=== PATIENT | female | born 1950 | race Caucasian/White ===

== ENCOUNTER 2023-02-12 14:58 | Inpatient (IN) | payer MEDICARE, BC ==
[2023-02-12] MEDS ORDERED: HEPARIN SODIUM 1,000 UN/ML (10ML VL) IV PRN (18:27)
[2023-02-12] MEDS ORDERED: ALBUTEROL NEBULIZED 2.5 MG/3 ML INHALATION PRN (18:44)
[2023-02-12] MEDS ORDERED: ACETAMINOPHEN TAB 325 MG TAB PO PRN (18:44)
[2023-02-12] MEDS ORDERED: ONDANSETRON 4 MG/2 ML VIAL IVP PRN (18:45)
[2023-02-12 19:07] LABS: Basophils % (A) 0 %; Eosinophils # (A) 0.1 k/uL (0-0.7); Eosinophils % (A) 1 %; Lymphocytes # (A) 1.7 k/uL (1.0-4.8); Lymphocytes % (A) 32 %; MCH 32.6 pg (25.0-35.0); MCHC 32.6 g/dL (31.0-37.0); MCV 99.9 fL (80.0-100.0); Mean Platelet Volume 7.6; Monocytes # (A) 0.3 k/uL (0-1.0); Monocytes % (A) 5 %; Neutrophils # (A) 3.1 k/uL (1.3-7.7); Neutrophils % (A) 58 %; Platelet Count 183 k/uL (150-450); RDW 12.6 % (11.5-15.5); WBC 5.3 k/uL (3.8-10.6)
[2023-02-12 19:12] LABS: Partial Thromboplastin Time 24.3 sec (22.0-30.0); Prothrombin Time 10.6 sec (9.0-12.0)
[2023-02-12] MEDS: HEPARIN SOD,PORK IN 0.45% NACL 25,000 UNIT in 0.45% NACL 1 250ML.BAG IV SCH (20:57)
[2023-02-12] MEDS ORDERED: ATORVASTATIN 40 MG TAB PO SCH (21:00)
[2023-02-12] MEDS: METOPROLOL TARTRATE 50 MG TAB PO SCH (21:06)
[2023-02-13 01:29] LABS: Prothrombin Time 10.5 sec (9.0-12.0)
[2023-02-13 07:39] LABS: Basophils % (A) 0 %; Eosinophils # (A) 0.1 k/uL (0-0.7); Eosinophils % (A) 2 %; HCT 42.5 % (34.0-46.0); HGB 14.2 gm/dL (11.4-16.0); Lymphocytes # (A) 1.2 k/uL (1.0-4.8); Lymphocytes % (A) 28 %; MCH 32.5 pg (25.0-35.0); MCHC 33.3 g/dL (31.0-37.0); MCV 97.5 fL (80.0-100.0); Monocytes # (A) 0.3 k/uL (0-1.0); Monocytes % (A) 6 %; Neutrophils # (A) 2.6 k/uL (1.3-7.7); Neutrophils % (A) 60 %; Platelet Count 171 k/uL (150-450); RBC 4.36 m/uL (3.80-5.40); RDW 12.9 % (11.5-15.5); WBC 4.4 k/uL (3.8-10.6)
[2023-02-13] MEDS ORDERED: SODIUM CHLORIDE 0.9% 1,000 ML IV ONE (09:00)
[2023-02-13] MEDS ORDERED: ASPIRIN 325 MG TAB ONE (09:06)
[2023-02-13] MEDS ORDERED: ASPIRIN 325 MG TAB PO ONE (09:07)
[2023-02-13] MEDS ORDERED: VERAPAMIL 2.5 MG/ML 2 ML AMP ONE (09:08)
[2023-02-13] MEDS ORDERED: fentaNYL (PF) 50 MCG/ML 2 ML AMP ONE (09:13)
[2023-02-13] MEDS ORDERED: fentaNYL (PF) 50 MCG/ML 2 ML AMP IV ONE (09:16)
[2023-02-13] MEDS ORDERED: LIDOCAINE 1% INJ 10MG/ML (5 ML VIAL-PF) SQ ONE (09:19)
[2023-02-13] MEDS ORDERED: MIDAZOLAM 2 MG/2 ML VIAL IV ONE (09:19)
[2023-02-13] MEDS ORDERED: VERAPAMIL SYRINGE (5 MG/10 ML) INTRAARTER ONE (09:21)
[2023-02-13] MEDS ORDERED: IOPAMIDOL-370 100ML BTL INJ ONE (09:51)
[2023-02-13] MEDS ORDERED: ATROPINE SULFATE 0.1 MG/ML 10ML SYRINGE IV PRN (09:57)
[2023-02-13] MEDS ORDERED: NITROGLYCERIN SL TABS 0.4 MG TAB SUBLINGUAL PRN (09:57)
[2023-02-13] MEDS ORDERED: ZOLPIDEM 5 MG TAB PO PRN (09:57)
[2023-02-13] MEDS ORDERED: RX INFO: IV CONTRAST WAS GIVEN 1 EACH MISC MISCELLANE PRN (09:57)
[2023-02-13] MEDS ORDERED: MAG HYDROX/AL HYDROX/SIMETH 30 ML CUP PO PRN (09:57)
[2023-02-13] MEDS ORDERED: SODIUM CHLORIDE 0.9% 1,000 ML in EMPTY BAG 1 BAG IV SCH (10:00)
--- NOTE | 2023-02-13 10:04 | P.PCN ---
Date of Procedure: 02/13/23 Operative Findings: CARDIAC CATHETERIZATION PERFORMING PHYSICIAN: Brenton Johnson MD, RPVI PROCEDURE PERFORMED: 1. Selective right and left coronary angiogram 2. Left heart catheterization 3. iFR of the RCA and iFR of the LAD INDICATION: Acute non-ST elevation myocardial infarction COMPLICATION: None APPROACH: Right radial approach LEVEL OF SEDATION: Moderate with the sedation time off 31 minutes PROCEDURE DESCRIPTION: After obtaining an informed consent the patient was brought to the cardiac computer lab assistant. The right radial artery was cannulated using micropuncture technique, the micropuncture wire passed easily then I placed a 6-Tajik sheath at the right radial artery. After that I did selective right and left coronary angiogram using JR4 and JL 3.5 catheters. Please note that the patient was given 2 mg of verapamil intra-arterial before the procedure was started. Subsequently I did left heart catheterization and that was performed using the JR4 catheter which cross the aortic valve then I did pulled back across the valve. After that we did Doppler wire of both the RCA and LAD. The procedure was completed was no complication SELECTIVE CORONARY ANGIOGRAM: The right coronary artery: Large caliber vessel and a dominant vessel. The mid RCA has a tubular lesion up to about 60-70% in the midportion. We did iFR and that came in to be nonischemic an 0.95. Left main: Is angiographically normal. Bifurcates into an LCx and LAD The left circumflex: Large caliber vessel and nondominant vessel. The LCx has mild disease only. Gives rises into a large OM1 and OM 2 and both appeared to be angiographically normal The left anterior descending artery: Large caliber vessel. The proximal LAD appears to have mild disease only. The proximal to mid LAD has a focal lesion appears to be in the range of 50-60%. Also we did perform iFR and that came in to be nonischemic an 0.91. The distal LAD appears to be angiographically normal. HEMODYNAMICS: The LVEDP was 12 mmHg was no significant gradient across aortic valve iFR OF THE RCA and LAD: Anticoagulation was initiated using heparin with continuous ACT monitoring. After zeroing the Doppler wire and equalizing between the Doppler wire and the guiding catheter which was JR4 guiding catheter and after wiring the RCA we did perform Doppler measurement and that was iFR and that came in to be an 0.95. That was performed multiple times. Subsequently after zeroing the Doppler wire again and equalizing between the Doppler wire and the guiding catheter for the left coronary system which was JL 3.5 guiding catheter and after wiring the LAD we did also iFR of the LAD and that came in to be nonischemic an 0.91. The procedure was completed was no complication CONCLUSION: 1. Extremely calcified right and left coronary systems 2. Intermediate to severe disease involving the mid RCA. iFR was nonischemic an 0.95 3. Intermediate to severe disease involving the mid LAD. iFR was nonischemic an 0.91 POSTPROCEDURE MANAGEMENT: 1. Continue maximize medical treatment including aggressive cholesterol control and risk factors modification
[2023-02-13] MEDS: METOPROLOL TARTRATE 50 MG TAB PO SCH (11:03)
--- NOTE | 2023-02-13 11:23 | P.PN ---
Subjective Progress Note Date: 02/13/23 The patient is a 72-year-old female who presented to the hospital with palpitations and chest tightness. She was ruled in for non-Q-wave myocardial infarction and was therefore transferred to [facility]. She underwent coronary angiogram this morning with Dr. Neville. She was found to have to intermediate lesions, one in the RCA and one in the LAD. FFR measurement deemed nonischemic. The patient was interviewed and examined resting in bed. She denies any chest pain or chest pressure. No more palpitations. No dizziness or lightheadedness. GENERAL: Well-appearing, well-nourished and in no acute distress. NECK: Supple without JVD or thyromegaly. LUNGS: Breath sounds clear to auscultation bilaterally. Respiration equal and unlabored. No wheezes, rales or rhonchi. HEART: Regular rate and rhythm without murmurs, rubs or gallops. S1 and S2 heard. EXTREMITIES: Normal range of motion, no edema. No clubbing or cyanosis. Peripheral pulses intact and strong. Right TR band in place VITALS: Blood pressure 151/77, pulse 78, respiratory rate 18, SpO2 95% on room air, afebrile TELEMETRY: Sinus rhythm IMPRESSION: Non-Q-wave myocardial infarction Moderate disease of RCA and LAD Atrial fibrillation with RVR, paroxysmal PLAN: Start anticoagulation Switch to Toprol-XL for rate control Start lisinopril for hypertension Echocardiogram to be completed outpatient Further recommendations to be based on clinical course I am dictating on behalf of Dr Claus Jalloh's history/physical and assessment/p asael. Objective - Vital Signs Vital signs: Vital Signs Temp 97.2 F L 02/13/23 07:59 Pulse 78 02/13/23 07:59 Resp 18 02/13/23 07:59 BP 151/77 02/13/23 07:59 Pulse Ox 95 02/13/23 07:59 FiO2 Intake & Output 02/12/23 02/13/23 02/13/23 18:59 06:59 18:59 Intake Total 598.924 100 Balance 598.924 100 Weight 68.039 kg Intake: IV 100 Intake, IV Titration 58.924 Amount Heparin Sod,Pork in 0.45% 58.924 NaCl 25,000 unit In 0.45 % NaCl 1 250ml.bag @ 12 UNITS/KG/HR 8.165 mls/hr IV .Q24H NARCISA Rx#: [id number] Oral 540 0 Other: # Voids 2 - Labs CBC & Chem 7: 02/13/23 06:59 Labs: Abnormal Lab Results - Last 24 Hours (Table) 02/13/23 02/13/23 Range/Units 01:02 06:59 APTT 42.0 H 59.0 H (22.0-30.0) sec
[2023-02-13 12:15] VITALS: BMI 23.5
[2023-02-13] MEDS: LEVOTHYROXINE 75 MCG TAB PO SCH (12:34)
[2023-02-13] MEDS: CLOPIDOGREL 75 MG TAB PO SCH (12:34)
[2023-02-13] MEDS: FENOFIBRATE 54 MG TAB PO SCH (12:34)
[2023-02-13] MEDS: METOPROLOL SUCCINATE (ER) 100 MG TAB.ER.24H PO SCH (12:35)
[2023-02-13 12:41] LABS: African American GFR (CKD) >90 (>60 ml/min/1.73 sqM); Anion Gap 6 mmol/L; Blood Urea Nitrogen 16 mg/dL (7-17); Carbon Dioxide 28 mmol/L (22-30); Chloride 104 mmol/L (98-107); Glucose 95 mg/dL (74-99); Non-African American GFR(CKD) 88 (>60 ml/min/1.73 sqM); Potassium 4.7 mmol/L (3.5-5.1); Sodium 138 mmol/L (137-145)
[2023-02-13] MEDS: HEPARIN SOD,PORK IN 0.45% NACL 25,000 UNIT in 0.45% NACL 1 250ML.BAG IV SCH (19:42)
[2023-02-13] MEDS: lisinopriL 10 MG TAB PO SCH (20:54)
[2023-02-13] MEDS: APIXABAN 5 MG TAB PO SCH (20:54)
[2023-02-13] MEDS: ATORVASTATIN 80 MG TAB PO SCH (20:54)
--- NOTE | 2023-02-14 01:51 | P.HPIM ---
History of Present Illness H&P Date: 02/13/23 Chief Complaint: Chest tightness Patient is a 72-year-old female with a known history of hypertension, hyperlipidemia, COPD, osteoarthritis and hypothyroidism and currently everyday smoker initially presented to [facility] due to complaints of palpitations, dizziness and chest tightness. Patient found to have atrial fibrillation with rapid evaluate and elevated troponin level. Patient did have EKG changes with ST depressions in the precordial leads. Due to elevated troponin level and EKG this patient was transferred to [facility] for cardiac catheterization. Patient underwent cardiac catheterization which showed extremely calcified right and left coronary systems. Intermediate to severe disease involving mid RCA and mid LAD maximal medical therapy was recommended by cardiology. Laboratory data showed WBC 4.4 hemoglobin 14.1 platelets 171 Sodium 138 potassium 4.7 chloride 104 bicarb is 28 BUN 16 creatinine 0.65 blood sugar is 95. Review of Systems Constitutional: Patient denies any fever or chills . no Generalized weakness. Abdomen: Patient denied any nausea or vomiting or abd. pain Cardiovascular: Patient denies any chest pain or short of breath no palpitations. Respiratory: patient denied any cough . no sputum production. No shortness of breath Neurologic: Patient denied any numbness or tingling headache. Musculoskeletal: Patient denies any complaints of joint swelling or deformity. Skin: Negative Psychiatric: Negative Endocrine: No heat or cold intolerance. No recent weight gain. Genitourinary: No dysuria or hematuria. All other 14 point ROS negative except the above Past Medical History Past Medical History: Atrial Fibrillation, COPD, Hyperlipidemia, Hypertension, Osteoarthritis (OA), Thyroid Disorder Additional Past Medical History / Comment(s): new a-fib at [facility] prior to transfer, carotid stenosis? Sees Cuppari History of Any Multi-Drug Resistant Organisms: None Reported Past Surgical History: Appendectomy, Orthopedic Surgery, Tonsillectomy Additional Past Surgical History / Comment(s): Left elbow surgery, L hand Past Psychological History: No Psychological Hx Reported Smoking Status: Current some day smoker Past Alcohol Use History: None Reported Past Drug Use History: None Reported - Past Family History Mother Family Medical History: Congestive Heart Failure (CHF) Brother(s) Family Medical History: Coronary Artery Disease (CAD) Sister(s) Family Medical History: AFIB Medications and Allergies Home Medications Medication Instructions Recorded Confirmed Type Cholecalciferol [Vitamin D3] 1,000 unit PO DAILY 12/23/14 02/12/23 History Albuterol Sulfate [Albuterol 2 puff INHALATION RT-QID PRN 02/12/23 02/12/23 History Sulfate Hfa] Ascorbic Acid [Vitamin C] 500 mg PO DAILY 02/12/23 02/12/23 History Aspirin EC [Ecotrin Low Dose] 81 mg PO DAILY 02/12/23 02/12/23 History Atorvastatin [Lipitor] 80 mg PO DAILY 02/12/23 02/13/23 History Clopidogrel [Plavix] 75 mg PO DAILY 02/12/23 02/12/23 History Fenofibrate [Lofibra] 54 mg PO DAILY 02/12/23 02/12/23 History Levothyroxine Sodium [Synthroid] 125 mcg PO DAILY 02/12/23 02/12/23 History RX: Biotin 5 mg PO DAILY 02/12/23 02/12/23 History RX: Vitamin B Complex 1 cap PO DAILY 02/12/23 02/12/23 History Zinc Gluconate [Zinc] 50 mg PO DAILY 02/12/23 02/12/23 History Metoprolol Succinate (ER) [Toprol 100 mg PO DAILY 02/13/23 02/13/23 History Xl] Allergies Allergy/AdvReac Type Severity Reaction Status Date / Time alendronate sodium Allergy Rash/Hives Verified 02/12/23 18:50 [From Fosamax] guzman Allergy Rash/Hives Verified 02/12/23 18:50 Penicillins Allergy Rash/Hives/ Verified 02/12/23 18:50 Nausea codeine AdvReac Nausea & Verified 02/12/23 18:50 Vomiting Physical Exam Vitals: Vital Signs Temp Pulse Resp BP Pulse Ox 02/13/23 07:59 97.2 F L 78 18 151/77 95 02/13/23 04:00 97.5 F L 62 18 156/77 92 L 02/13/23 02:00 61 18 02/13/23 00:00 98.0 F 61 18 130/72 93 L 02/12/23 20:00 97.9 F 72 18 137/64 93 L 02/12/23 18:17 70 18 177/76 95 Intake and Output 02/12/23 02/13/23 02/13/23 22:59 06:59 14:59 Intake Total 540 58.924 100 Balance 540 58.924 100 Intake: IV 100 Intake, IV Titration 58.924 Amount Heparin Sod,Pork in 0.45% 58.924 NaCl 25,000 unit In 0.45 % NaCl 1 250ml.bag @ 12 UNITS/KG/HR 8.165 mls/hr IV .Q24H NARCISA Rx#: [id number] Oral 540 Other: # Voids 2 Weight 68.039 kg PHYSICAL EXAMINATION: Patient is lying in the bed comfortably, no acute distress, awake alert and oriented.. HEENT: Normocephalic. Neck is supple. Pupils reactive. Nostrils clear. Oral cavity is moist. Neck reveals no JVD, carotid bruits, or thyromegaly. CHEST EXAMINATION: Trachea is central. Symmetrical expansion. Lung freitas clear to auscultation and percussion. CARDIAC: Normal S1, S2 with no gallops. No murmurs ABDOMEN: Soft. Bowel sounds present. Nontender. No organomegaly. No abdominal bruits. Extremities: reveal no edema. No clubbing or cyanosis Neurologically awake, alert, oriented x3 with well-coordinated movements. No focal deficits noted Skin: No rash or skin lesions. Psychiatric: Coperative. Nonsuicidal, Musculoskeletal: No joint swelling or deformity. Normal range of motion. Results CBC & Chem 7: 02/13/23 06:59 02/13/23 10:41 Labs: Abnormal Lab Results - Last 24 Hours (Table) 02/13/23 02/13/23 Range/Units 01:02 06:59 APTT 42.0 H 59.0 H (22.0-30.0) sec Thrombosis Risk Factor Assmnt - DVT/VTE Prophylaxis DVT/VTE Prophylaxis: Pharmacologic Prophylaxis ordered - Choose All That Apply Each Risk Factor Represents 2 Points: Age 61-74 years Thrombosis Risk Factor Assessment Total Risk Factor Score: 2 Thrombosis Risk Factor Assessment Level: Low Risk Assessment and Plan Assessment: New onset atrial fibrillation with rapid ventricular rate. Paroxysmal atrial fibrillation Acute non-ST elevated NH status postcardiac catheterization showed moderate disease in the mid RCA and mid LAD. Hypothyroidism Hypertension Hyperlipidemia COPD Osteoarthritis Currently someday smoker DVT prophylaxis patient is already on full anticoagulation Plan: Patient will be continued on telemetry monitoring. Initially was on Cardizem drip and heparin drip. Currently patient was started on Toprol-XL and lisinopril. Anticoagulation changed to Eliquis. Continue with DuoNebs and follow-up c martínez. Anticipate discharge in the next 24 hours. Patient did improve symptomatically. Time with Patient: Greater than 30
[2023-02-14] MEDS: LEVOTHYROXINE 75 MCG TAB PO SCH (05:57)
[2023-02-14] MEDS: APIXABAN 5 MG TAB PO SCH ×2 (08:23→21:08)
[2023-02-14] MEDS: METOPROLOL SUCCINATE (ER) 100 MG TAB.ER.24H PO SCH (08:23)
[2023-02-14] MEDS: ASPIRIN 81 MG PO SCH (08:23)
[2023-02-14] MEDS: CLOPIDOGREL 75 MG TAB PO SCH (08:24)
[2023-02-14] MEDS: FENOFIBRATE 54 MG TAB PO SCH (08:24)
--- NOTE | 2023-02-14 10:59 | P.CRDCN ---
History of Present Illness History of present illness: Mrs. Silva was transferred from [facility] with a non-Q wave myocardial infarction and significant ST depressions during atrial fibrillation as well as after she spontaneously converted to sinus rhythm She has not obstructive coronary artery disease with very borderline lesions at this time LVEDP 12 Mid RCA has a 60-70% stenosis with a nonischemic IFR of 0.95 The proximal mid LAD has stenosis of 50-60% with an IFR of 0.91 Extremely calcified coronary arteries She is doing well now in sinus rhythm ST segments have nearly normalized She is a very subtle downsloping ST depression in V4 through V6 Electrolytes and normal renal function is normal hemoglobin 14.2 Impression Very symptomatic atrial fibrillation with RVR with ST depressions and2 PR secondary to demand ischemia on account of PFO with RVR despite medical treatment with metoprolol CAD with 2 vessel disease with a nonischemic IFR but borderline lesions in the RCA and LAD Heavily calcified coronary arteries Suggest Continue ELIQUIS 5 mg twice daily Continue Plavix 75 g by mouth daily After one week we will stop aspirin Continue Zestril Metoprolol succinate 100 mg by mouth daily, heart rate 7 the 60s to I would recommend A. fib ablation for very symptomatic atrial fibrillation and this failed medical treatment and has triggered a non-Q wave myocardial ischemia type II PR I discussed this with the patient and after about 4-6 weeks of incision of ELIQUIS we'll proceed with an A. fib ablation The following the office in about a week Past Medical History Past Medical History: Atrial Fibrillation, COPD, Hyperlipidemia, Hypertension, Osteoarthritis (OA), Thyroid Disorder Additional Past Medical History / Comment(s): new a-fib at [facility] prior to transfer, carotid stenosis? Sees Cuppari History of Any Multi-Drug Resistant Organisms: None Reported Past Surgical History: Appendectomy, Orthopedic Surgery, Tonsillectomy Additional Past Surgical History / Comment(s): Left elbow surgery, L hand Past Psychological History: No Psychological Hx Reported Smoking Status: Current some day smoker Past Alcohol Use History: None Reported Past Drug Use History: None Reported - Past Family History Mother Family Medical History: Congestive Heart Failure (CHF) Brother(s) Family Medical History: Coronary Artery Disease (CAD) Sister(s) Family Medical History: AFIB Medications and Allergies Home Medications Medication Instructions Recorded Confirmed Type Cholecalciferol [Vitamin D3] 1,000 unit PO DAILY 12/23/14 02/12/23 History Albuterol Sulfate [Albuterol 2 puff INHALATION RT-QID PRN 02/12/23 02/12/23 History Sulfate Hfa] Ascorbic Acid [Vitamin C] 500 mg PO DAILY 02/12/23 02/12/23 History Aspirin EC [Ecotrin Low Dose] 81 mg PO DAILY 02/12/23 02/12/23 History Atorvastatin [Lipitor] 80 mg PO DAILY 02/12/23 02/13/23 History Biotin 5 mg PO DAILY 02/12/23 02/12/23 History Clopidogrel [Plavix] 75 mg PO DAILY 02/12/23 02/12/23 History Fenofibrate [Lofibra] 54 mg PO DAILY 02/12/23 02/12/23 History Levothyroxine Sodium [Synthroid] 125 mcg PO DAILY 02/12/23 02/12/23 History Vitamin B Complex 1 cap PO DAILY 02/12/23 02/12/23 History Zinc Gluconate [Zinc] 50 mg PO DAILY 02/12/23 02/12/23 History Metoprolol Succinate (ER) [Toprol 100 mg PO DAILY 02/13/23 02/13/23 History Xl] Allergies Allergy/AdvReac Type Severity Reaction Status Date / Time alendronate sodium Allergy Rash/Hives Verified 02/12/23 18:50 [From Fosamax] guzman Allergy Rash/Hives Verified 02/12/23 18:50 Penicillins Allergy Rash/Hives/ Verified 02/12/23 18:50 Nausea codeine AdvReac Nausea & Verified 02/12/23 18:50 Vomiting Physical Exam Vitals: Vital Signs Temp Pulse Resp BP Pulse Ox 02/14/23 08:00 98.5 F 65 18 144/65 92 L 02/14/23 04:00 66 18 127/58 92 L 02/14/23 02:00 64 16 02/14/23 00:00 64 16 144/73 94 L 02/13/23 20:00 97.5 F L 68 16 157/67 92 L 02/13/23 16:00 68 16 152/66 94 L 02/13/23 12:00 153/74 02/13/23 11:42 153/72 02/13/23 11:12 84 18 160/75 98 Intake and Output 02/13/23 02/14/23 02/14/23 22:59 06:59 14:59 Intake Total 658 480 Balance 658 480 Intake: Oral 658 480 Other: Voiding Method Toilet Toilet # Voids 3 2 Results 02/13/23 06:59 02/13/23 10:41 Comprehensive Metabolic Panel 02/13/23 Range/Units 10:41 Sodium 138 (137-145) mmol/L Potassium 4.7 (3.5-5.1) mmol/L Chloride 104 (98-107) mmol/L Carbon Dioxide 28 (22-30) mmol/L BUN 16 (7-17) mg/dL Creatinine 0.65 (0.52-1.04) mg/dL Glucose 95 (74-99) mg/dL Calcium 9.0 (8.4-10.2) mg/dL Current Medications Generic Name Dose Route Start Last Admin Trade Name Freq PRN Reason Stop Dose Admin Acetaminophen 650 mg 02/12/23 18:44 Acetaminophen Tab 325 Mg Tab PO Q4HR PRN Fever and/ or Pain Al Hydroxide/Mg Hydroxide 30 ml 02/13/23 09:57 Mag Hydrox/Al Hydrox/Simeth 30 Ml Cup PO Q4HR PRN Heartburn Albuterol Sulfate 2.5 mg 02/12/23 18:44 Albuterol Nebulized 2.5 Mg/3 Ml INHALATION RT-Q4H PRN Shortness Of Breath Or Wheezing Apixaban 5 mg 02/13/23 21:00 02/14/23 08:23 Apixaban 5 Mg Tab PO 5 mg BID NARCISA Administration Protocol Aspirin 81 mg 02/14/23 09:00 02/14/23 08:23 Aspirin 81 Mg PO 81 mg DAILY NARCISA Administration Atorvastatin Calcium 80 mg 02/13/23 21:00 02/13/23 20:54 Atorvastatin 80 Mg Tab PO 80 mg HS NARCISA Administration Atropine Sulfate 0.5 mg 02/13/23 09:57 Atropine Sulfate 0.1 Mg/Ml 10ml Syringe IV ONCE PRN Symptomatic Bradycardia Clopidogrel Bisulfate 75 mg 02/13/23 09:00 02/14/23 08:24 Clopidogrel 75 Mg Tab PO 75 mg DAILY NARCISA Administration Fenofibrate 54 mg 02/13/23 09:00 02/14/23 08:24 Fenofibrate 54 Mg Tab PO 54 mg DAILY NARCISA Administration Levothyroxine Sodium 150 mcg 02/13/23 06:30 02/14/23 05:57 Levothyroxine 75 Mcg Tab PO 150 mcg DAILY@0630 NARCISA Administration Lisinopril 10 mg 02/13/23 21:00 02/13/23 20:54 Lisinopril 10 Mg Tab PO 10 mg HS NARCISA Administration Metoprolol Succinate 100 mg 02/13/23 10:15 02/14/23 08:23 Metoprolol Succinate (Er) 100 Mg Tab.Er.24h PO 100 mg DAILY NARCISA Administration Miscellaneous Information 1 each 02/13/23 09:57 Rx Info: Iv Contrast Was Given 1 Each Misc MISCELLANE 02/15/23 09:57 DAILY PRN Per Protocol Nitroglycerin 0.4 mg 02/13/23 09:57 Nitroglycerin Sl Tabs 0.4 Mg Tab SUBLINGUAL Q5M PRN Chest Pain Ondansetron HCl 4 mg 02/12/23 18:45 Ondansetron 4 Mg/2 Ml Vial IVP Q6HR PRN Nausea And Vomiting Zolpidem Tartrate 5 mg 02/13/23 09:57 Zolpidem 5 Mg Tab PO HS PRN Insomnia Intake and Output 02/13/23 02/14/23 02/14/23 22:59 06:59 14:59 Intake Total 658 480 Balance 658 480 Intake: Oral 658 480 Other: Voiding Method Toilet Toilet # Voids 3 2 02/13/23 06:59 02/13/23 10:41
--- NOTE | 2023-02-14 11:05 | P.PN ---
Subjective Progress Note Date: 02/14/23 The patient is a 72-year-old female who presented to the hospital with palpitations and chest tightness. She was ruled in for non-Q-wave myocardial infarction and was therefore transferred to [facility]. She underwent coronary angiogram this morning with Dr. Neville. She was found to have to intermediate lesions, one in the RCA and one in the LAD. FFR measurement deemed nonischemic. The patient was interviewed and examined resting in bed. She did have one episode of chest discomfort overnight her left pectoral area. She states this was associated palpitations. PACs were noted on telemetry. No EKG changes. GENERAL: Well-appearing, well-nourished and in no acute distress. NECK: Supple without JVD or thyromegaly. LUNGS: Breath sounds clear to auscultation bilaterally. Respiration equal and unlabored. No wheezes, rales or rhonchi. HEART: Regular rate and rhythm without murmurs, rubs or gallops. S1 and S2 heard. EXTREMITIES: Normal range of motion, no edema. No clubbing or cyanosis. Periphe ral pulses intact and strong. Mild bruising at right radial site VITALS: Blood pressure 144/65, pulse 65, respiratory rate 18, SpO2 92% on room air, afebrile TELEMETRY: Sinus rhythm IMPRESSION: Non-Q-wave myocardial infarction Moderate disease of RCA and LAD Atrial fibrillation with RVR, paroxysmal PLAN: Patient ambulated around unit. If no inducible anginal symptoms, patient may be discharged from the cardiac standpoint Follow-up with Dr. Jalloh in one week I am dictating on behalf of Dr Claus Jalloh's history/physical and assessment/plan. Objective - Vital Signs Vital signs: Vital Signs Temp 98.5 F 02/14/23 08:00 Pulse 65 02/14/23 08:00 Resp 18 02/14/23 08:00 BP 144/65 02/14/23 08:00 Pulse Ox 92 L 02/14/23 08:00 FiO2 Intake & Output 02/13/23 02/14/23 02/14/23 18:59 06:59 18:59 Intake Total 336 540 480 Balance 336 540 480 Weight 68.039 kg Intake: IV 100 Oral 236 540 480 Other: Voiding Method Toilet # Voids 3 2 - Labs CBC & Chem 7: 02/13/23 06:59 02/13/23 10:41
[2023-02-14 11:43] LABS: African American GFR (CKD) >90 (>60 ml/min/1.73 sqM); Non-African American GFR(CKD) 89 (>60 ml/min/1.73 sqM)
[2023-02-14 19:29] VITALS: RESP 16
[2023-02-14] MEDS: FAMOTIDINE 20 MG/2 ML VIAL IV SCH (21:08)
[2023-02-14] MEDS: lisinopriL 10 MG TAB PO SCH (21:08)
[2023-02-14] MEDS: ATORVASTATIN 80 MG TAB PO SCH (21:08)
[2023-02-15] MEDS: LEVOTHYROXINE 75 MCG TAB PO SCH (06:06)
[2023-02-15] MEDS: METOPROLOL SUCCINATE (ER) 100 MG TAB.ER.24H PO SCH (08:16)
[2023-02-15] MEDS: FENOFIBRATE 54 MG TAB PO SCH (08:16)
[2023-02-15] MEDS: ASPIRIN 81 MG PO SCH (08:16)
[2023-02-15] MEDS: CLOPIDOGREL 75 MG TAB PO SCH (08:17)
[2023-02-15] MEDS: APIXABAN 5 MG TAB PO SCH (08:17)
[2023-02-15] MEDS: FAMOTIDINE 20 MG/2 ML VIAL IV SCH (08:17)
[2023-02-15 08:23] VITALS: TEMP 98.5
[2023-02-15 11:37] VITALS: BP 125/65; PULSE 58
--- NOTE | 2023-02-15 13:04 | P.PN ---
Subjective Patient is a 72-year-old female with a known history of hypertension, hyperlipidemia, COPD, osteoarthritis and hypothyroidism and currently everyday smoker initially presented to [facility] due to complaints of palpitations, dizziness and chest tightness. Patient found to have atrial fibrillation with rapid evaluate and elevated troponin level. Patient did have EKG changes with ST depressions in the precordial leads. Due to elevated troponin level and EKG this patient was transferred to [facility] for cardiac catheterization. Patient underwent cardiac catheterization which showed extremely calcified right and left coronary systems. Intermediate to severe disease involving mid RCA and mid LAD maximal medical therapy was recommended by cardiology. Laboratory data showed WBC 4.4 hemoglobin 14.1 platelets 171 Sodium 138 potassium 4.7 chloride 104 bicarb is 28 BUN 16 creatinine 0.65 blood sugar is 95. 02/14/2023 Patient was admitted with signs of symptoms of meniscectomy and developed by systems designer and underwent cardiac cath showed intermediate to severe disease involving both RCA and LAD, systems designer recommended continue with medical management. Patient is currently on aspirin and Plavix and other cardiac medication. Also she has evidence of paroxysmal atrial fibrillation and currently she is on liquids which is new medication for her. Pending co-pay evaluation. All pharmacies were closed today for Also ask for PT/OT evaluation prior to discharge given she is on aspirin Plavix and cannot be started on liquids and she is feeling generally weak. This could be done tomorrow as today's holiday. at bedside and all recommendation artery by the patient and . Recommended for the patient to follow-up with Dr. Magana in 1-2 weeks after discharge as well as with her PCP Dr. Stout in 1 week after discharge and she is agreeable Possible discharge in 24-48 hours Objective - Vital Signs Vital signs: Vital Signs Temp 98.5 F 02/14/23 08:00 Pulse 65 02/14/23 08:00 Resp 18 02/14/23 08:00 BP 144/65 02/14/23 08:00 Pulse Ox 92 L 02/14/23 08:00 FiO2 Intake & Output 02/13/23 02/14/23 02/14/23 18:59 06:59 18:59 Intake Total 336 540 480 Balance 336 540 480 Weight 68.039 kg Intake: IV 100 Oral 236 540 480 Other: Voiding Method Toilet # Voids 3 2 - Exam GENERAL: The patient is alert and oriented x3, not in any acute distress. Well developed, well nourished. HEENT: Pupils are round and equally reacting to light. EOMI. No scleral icterus. No conjunctival pallor. Normocephalic, atraumatic. No pharyngeal erythema. No thyromegaly. CARDIOVASCULAR: S1 and S2 present. No murmurs, rubs, or gallops. PULMONARY: Chest is clear to auscultation, no wheezing . no crackles. ABDOMEN: Soft, nontender, nondistended, normoactive bowel sounds. No palpable organomegaly. MUSCULOSKELETAL: No joint swelling or deformity. EXTREMITIES: No cyanosis, clubbing, or pedal edema. NEUROLOGICAL: Gross neurological examination did not reveal any focal deficits. SKIN: No rashes. no petechiae. - Labs CBC & Chem 7: 02/13/23 06:59 02/14/23 11:09 Assessment and Plan Assessment: New onset paroxysmal atrial fibrillation with rapid ventricular rate. Acute non-ST elevated [place] status postcardiac catheterization showed moderate disease in the mid RCA and mid LAD. Hypothyroidism Hypertension Hyperlipidemia COPD Osteoarthritis Currently someday smoker Plan: Continue with aspirin and Plavix, patient confirmed to me she has this medication and home and she did not want prescription when I offered to her She says Eliquis is a new medication, prescription was sent to the pharmacy. We'll check for co-pay Cardiology team on the case Labs and medication were reviewed.. Continue same treatment. Continue with symptomatic treatment. Resume home medication. Monitor labs and vitals. DVT and GI prophylaxis. Further recommendations as per clinical course of the patient DVT prophylaxis: Eliquis GI Prophylaxis: Pepcid PT/OT: Pending Prognosis is guarded
--- NOTE | 2023-02-15 13:06 | P.PN ---
Subjective Progress Note Date: 02/15/23 HISTORY OF PRESENT ILLNESS: This is a 72-year-old female who follows in the office with Dr. Jalloh. She underwent cardiac catheterization with Dr. Neville on 02/13/2023 revealing extr emity calcified right and left coronary systems. Intermediate to severe disease involving the mid RCA. iFR was nonischemic at 0.95. Intermediate to severe disease involving the mid LAD. iFR was nonischemic at 0.91. Medical management was recommended. Patient examined this morning at the bedside. Patient denies chest pain or pressure. She denies shortness of breath. She denies having any palpitations this morning. Telemetry reveals sinus mechanism. Vital signs are stable. PHYSICAL EXAM: VITAL SIGNS: Reviewed. GENERAL: Well-developed in no acute distress. NECK: Supple. No JVD or thyromegaly LUNGS: Respirations even and unlabored. Lungs essentially clear to auscultation bilaterally. HEART: Regular rate and rhythm. S1 and S2 heard. EXTREMITIES: Normal range of motion. No clubbing or cyanosis. Peripheral pulses intact. No lower extremity edema ASSESSMENT: Non-STEMI, status post cardiac catheterization as above Coronary artery disease Paroxysmal atrial fibrillation with RVR, currently maintaining sinus mechanism PLAN: Continue current cardiac medications Patient is stable for discharge home today from a cardiac standpoint She is to follow up on an outpatient basis with Dr. Jalloh Nurse practitioner note has been reviewed by physician. Signing provider agrees with the documented findings, assessment, and plan of care. Objective - Vital Signs Vital signs: Vital Signs Temp 98.5 F 02/15/23 08:22 Pulse 58 L 02/15/23 11:35 Resp 16 02/15/23 11:35 BP 125/65 02/15/23 11:35 Pulse Ox 98 02/15/23 11:35 FiO2 Intake & Output 02/14/23 02/15/23 02/15/23 18:59 06:59 18:59 Intake Total 598 118 240 Balance 598 118 240 Intake: Oral 598 118 240 Other: Voiding Method Toilet Toilet # Voids 2 2 1 - Labs CBC & Chem 7: 02/13/23 06:59 02/14/23 11:09
--- NOTE | 2023-02-16 00:35 | P.DS ---
Providers Date of admission: 02/12/23 17:01 Attending physician: Marlene Guerrero Consults: 02/13/23 02:48 Consult Physician Urgent Consulting Provider: Claus Jalloh Consult Reason/Comments: NSTEMI Do you want consulting provider notified?: Already Contacted 02/13/23 09:57 Consult Physician Routine Consulting Provider: [facility] Consult Reason/Comments: Post Interventional patient Do you want consulting provider notified?: Already Contacted Primary care physician: Mary Stout DO Hospital Course: Diagnoses: New onset paroxysmal atrial fibrillation with rapid ventricular rate. Acute non-ST elevated [place] status postcardiac catheterization showed moderate disease in the mid RCA and mid LAD. Hypothyroidism Hypertension Hyperlipidemia COPD Osteoarthritis Currently someday smoker Hospital course: Patient is a 72-year-old female with a known history of hypertension, hyperlipidemia, COPD, osteoarthritis and hypothyroidism and currently everyday smoker initially presented to [facility] due to complaints of palpitations, dizziness and chest tightness. Patient found to have atrial fibrillation with rapid evaluate and elevated troponin level. Patient did have EKG changes with ST depressions in the precordial leads. Patient was evaluated by railway yard assistant and underwent cardiac cath showed intermediate to severe disease involving both RCA and LAD, railway yard assistant recommended continue with medical management. Patient is currently on aspirin and Plavix (patient confirmed to me she has aspirin and Plavix at, she does not want anymore prescription) however p padminiient was started on liquids, her co-pay is $120 and patient is agreeable to this co-pay, however she was provided with a coupon for 1 month of free eliquis and instructed to follow up with her PCP and railway yard assistant for further recommendation regarding this medication management and she is agreeable. Risks of bleeding explained for her extensively and she verbalized understanding and acceptance. The epiglottis is normal. On the day of discharge she denies chest pain palpitations, no dyspnea, no other new urinary GI or neurological symptoms Patient was cleared for discharge by railway yard assistant Problems and management plan were discussed with the patient and he verbalized understanding and acceptance Patient was found stable and can be discharged home in guarded prognosis however he needs follow-up as an outpatient. Patient was instructed to follow up with PCP Dr. Stout within one week and patient agrees Patient was instructed to follow up with her railway yard assistant Dr. Magana in 1-2 weeks after discharge and she is agreeable Physical exam Gen: patient is a AAOx3, no distress CVS: S1-S2, RRR, no murmur Lungs: B/L CTA, no wheezing Abdomen: soft, no distention, no tenderness, positive bowel sounds Extremity: no leg edema or induration Time spent more than 35 minutes Plan - Discharge Summary New Discharge Prescriptions: New Nitroglycerin Sl Tabs [Nitrostat] 0.4 mg SUBLINGUAL Q5M PRN #20 tab PRN Reason: Chest Pain lisinopriL [Zestril] 10 mg PO DAILY #90 tab Apixaban [Eliquis] 5 mg PO BID #180 tab Continue Cholecalciferol [Vitamin D3 (25 Mcg = 1000 Iu)] 1,000 unit PO DAILY Ascorbic Acid [Vitamin C] 500 mg PO DAILY Aspirin EC [Ecotrin Low Dose] 81 mg PO DAILY Levothyroxine Sodium [Synthroid] 125 mcg PO DAILY Clopidogrel [Plavix] 75 mg PO DAILY Albuterol Sulfate [Albuterol Sulfate Hfa] 2 puff INHALATION RT-QID PRN PRN Reason: Shortness Of Breath Zinc Gluconate [Zinc] 50 mg PO DAILY Biotin 5 mg PO DAILY Vitamin B Complex 1 cap PO DAILY Fenofibrate [Lofibra] 54 mg PO DAILY Atorvastatin [Lipitor] 80 mg PO DAILY Metoprolol Succinate (ER) [Toprol XL] 100 mg PO DAILY #30 tab Discontinued amLODIPine [Norvasc] 5 mg PO DAILY Fish Oil(Unknown Dose) 1 cap PO DAILY Metoprolol Tartrate [Lopressor] 100 mg PO BID Discharge Medication List Cholecalciferol [Vitamin D3 (25 Mcg = 1000 Iu)] 1,000 unit PO DAILY 12/23/14 [History] Albuterol Sulfate [Albuterol Sulfate Hfa] 2 puff INHALATION RT-QID PRN 02/12/23 [History] Ascorbic Acid [Vitamin C] 500 mg PO DAILY 02/12/23 [History] Aspirin EC [Ecotrin Low Dose] 81 mg PO DAILY 02/12/23 [History] Atorvastatin [Lipitor] 80 mg PO DAILY 02/12/23 [History] Biotin 5 mg PO DAILY 02/12/23 [History] Clopidogrel [Plavix] 75 mg PO DAILY 02/12/23 [History] Fenofibrate [Lofibra] 54 mg PO DAILY 02/12/23 [History] Levothyroxine Sodium [Synthroid] 125 mcg PO DAILY 02/12/23 [History] Vitamin B Complex 1 cap PO DAILY 02/12/23 [History] Zinc Gluconate [Zinc] 50 mg PO DAILY 02/12/23 [History] Apixaban [Eliquis] 5 mg PO BID #180 tab 02/14/23 [Rx] Nitroglycerin Sl Tabs [Nitrostat] 0.4 mg SUBLINGUAL Q5M PRN #20 tab 02/14/23 [Rx] lisinopriL [Zestril] 10 mg PO DAILY #90 tab 02/14/23 [Rx] Metoprolol Succinate (ER) [Toprol XL] 100 mg PO DAILY #30 tab 02/15/23 [Rx] Follow up Appointment(s)/Referral(s): Claus Jalloh MD [STAFF PHYSICIAN] - 10 Days Mary Stout DO [Primary Care Provider] - 1 Week (office staff will call pt with appt date and time) Patient Instructions/Handouts: *Surgery [facility] - After Heart Catheterization - Pack Master Instructions, A-fib (Atrial Fibrillation) (DC), After Radial Heart Catheterization (GEN) Activity/Diet/Wound Care/Special Instructions: Heart healthy diet Activity is restricted till you see your doctor your copay for eliquis is $120 per month , a coupon for one month supply of free eliquis is provided for your upon discharge , please follow up with your doctor for further recommendation Discharge Disposition: HOME SELF-CARE
== END 2023-02-15 14:12 | disposition home or self-care (01) | DRG 282 ==
LOC: 3SCARD 17:01
PROVIDERS: ADMIT Internal Medicine; ATTEND Internal Medicine
PROC: 4A033BC Measurement of Arterial Pressure, Coronary, Percutaneous Approach (ICD-10-PCS; 2023-02-13)
PROC: 4A023N7 Measurement of Cardiac Sampling and Pressure, Left Heart, Percutaneous Approach (ICD-10-PCS; principal; 2023-02-13 08:49)
PROC: B2111ZZ Fluoroscopy of Multiple Coronary Arteries using Low Osmolar Contrast (ICD-10-PCS; 2023-02-13 08:49)
DX: I21.4 Non-ST elevation (NSTEMI) myocardial infarction (principal); I48.0 Paroxysmal atrial fibrillation; I10 Essential (primary) hypertension; E03.9 Hypothyroidism, unspecified; E78.5 Hyperlipidemia, unspecified; F17.200 Nicotine dependence, unspecified, uncomplicated; I25.10 Atherosclerotic heart disease of native coronary artery without angina pectoris; J44.9 Chronic obstructive pulmonary disease, unspecified; M19.90 Unspecified osteoarthritis, unspecified site; Z79.01 Long term (current) use of anticoagulants; Z79.02 Long term (current) use of antithrombotics/antiplatelets; Z79.82 Long term (current) use of aspirin; Z79.890 Hormone replacement therapy; Z79.899 Other long term (current) drug therapy; Z88.5 Allergy status to narcotic agent; Z88.0 Allergy status to penicillin; Z88.8 Allergy status to other drugs, medicaments and biological substances; Z82.49 Family history of ischemic heart disease and other diseases of the circulatory system
CPT/HCPCS: 80048; 82565; 85025; 85610; 85730; 93458; 93799

== ENCOUNTER 2024-01-23 00:56 | Emergency (ER) | payer MEDICARE, BC ==
--- NOTE | 2024-01-23 01:03 | ED ---
Chest Pain HPI - General Stated Complaint: Cardiac Dysrhythmia, Chest Pain Time Seen by Provider: 01/23/24 00:59 Source: RN notes reviewed, old records reviewed Limitations: no limitations - History of Present Illness Initial Comments: This is a 73-year-old female to the ER for evaluation of severe shortness of breath history of atrial fibrillation and COPD found to have elevated heart rate here in the ER as well as chest pain MD Complaint: chest pain, other (Arrhythmia with elevated blood pressure) -: days(s) Onset: during rest, during exertion, associated with drug use Pain Location: substernal, left chest Pain Radiation: none Severity: moderate Severity scale (1-10): 4 Quality: tightness, heaviness Consistency: constant Improves With: nothing Worsens With: nothing Anginal Symptoms: sense of impending doom Other Symptoms: palpitations Treatments Prior to Arrival: none - Related Data Home Medications Medication Instructions Recorded Confirmed Cholecalciferol [Vitamin D3 (25 1,000 unit PO QA 12/23/14 03/31/23 Mcg = 1000 Iu)] Albuterol Sulfate [Albuterol 2 puff INHALATION RT-QID PRN 02/12/23 03/31/23 Sulfate Hfa] Ascorbic Acid [Vitamin C] 500 mg PO QA 02/12/23 03/31/23 Atorvastatin [Lipitor] 80 mg PO HS 02/12/23 03/31/23 Biotin 5 mg PO QA 02/12/23 03/31/23 Clopidogrel [Plavix] 75 mg PO QAM 02/12/23 04/05/23 Fenofibrate [Lofibra] 54 mg PO QA 02/12/23 03/31/23 Levothyroxine Sodium [Synthroid] 125 mcg PO QA 02/12/23 03/31/23 Vitamin B Complex 1 cap PO QA 02/12/23 03/31/23 Zinc Gluconate [Zinc] 50 mg PO QAM 02/12/23 03/31/23 Biotin [Biotin Disolve] 5,000 mg PO QAM 03/31/23 03/31/23 Lysine 500 mg PO QA 03/31/23 03/31/23 Metoprolol Succinate (ER) [Toprol 100 mg PO QAM 03/31/23 03/31/23 XL] lisinopriL [Zestril] 10 mg PO QAM 03/31/23 04/05/23 Previous Rx's Medication Instructions Recorded Apixaban [Eliquis] 5 mg PO BID #180 tab 02/14/23 Nitroglycerin Sl Tabs [Nitrostat] 0.4 mg SUBLINGUAL Q5M PRN #20 tab 02/14/23 Allergies Allergy/AdvReac Type Severity Reaction Status Date / Time alendronate sodium Allergy Rash/Hives Verified 03/31/23 11:16 [From Fosamax] guzman Allergy Rash/Hives Verified 03/31/23 11:16 Penicillins Allergy Rash/Hives/ Verified 03/31/23 11:16 Nausea codeine AdvReac Nausea & Verified 03/31/23 11:16 Vomiting Review of Systems ROS Statement: Those systems with pertinent positive or pertinent negative responses have been documented in the HPI. ROS Other: All systems not noted in ROS Statement are negative. EKG Findings - EKG Comments: EKG Findings:: EKG is a flutter 138 QRS 86 QTc 377 - EKG Results: EKG: interpreted by ERMD EKG shows: tachycardia, atrial fibrillation - Dysrhythmias: Sinus rhythms and dysrhythmias: sinus rhythm (Repeat EKG is sinus 81 WI 161 QRS 80 QTc 417) Past Medical History Past Medical History: Atrial Fibrillation, COPD, Hyperlipidemia, Hypertension, Myocardial Infarction (SC), Osteoarthritis (OA), Skin Disorder, Thyroid Disorder, Vascular Disorder Additional Past Medical History / Comment(s): SEE DR. MA'S H&P. 02/08 new a-fib/NSTEMI, caratid artery disease Last Myocardial Infarction Date:: 01/2023 History of Any Multi-Drug Resistant Organisms: None Reported Past Surgical History: Appendectomy, Heart Catheterization, Orthopedic Surgery, Tonsillectomy Additional Past Surgical History / Comment(s): Left elbow surgery, L hand Past Anesthesia/Blood Transfusion Reactions: Motion Sickness Additional Past Anesthesia/Blood Transfusion Reaction / Comment(s): Pt has never received blood. Smoking Status: Current some day smoker - Past Family History Mother Family Medical History: Congestive Heart Failure (CHF) Brother(s) Family Medical History: Coronary Artery Disease (CAD), Myocardial Infarction (SC) Additional Family Medical History / Comment(s): of SC in his 40s. Sister(s) Family Medical History: AFIB General Exam General appearance: alert, in no apparent distress Head exam: Present: atraumatic, normocephalic, normal inspection Eye exam: Present: normal appearance, PERRL, EOMI. Absent: scleral icterus, conjunctival injection, periorbital swelling ENT exam: Present: normal exam, mucous membranes moist Neck exam: Present: normal inspection. Absent: tenderness, meningismus, lymphadenopathy Respiratory exam: Present: normal lung sounds bilaterally. Absent: respiratory distress, wheezes, rales, rhonchi, stridor Cardiovascular Exam: Present: regular rate, normal rhythm, normal heart sounds. Absent: systolic murmur, diastolic murmur, rubs, gallop, clicks GI/Abdominal exam: Present: soft, normal bowel sounds. Absent: distended, tenderness, guarding, rebound, rigid Extremities exam: Present: normal inspection, full ROM, normal capillary refill. Absent: tenderness, pedal edema, joint swelling, calf tenderness Back exam: Present: normal inspection Neurological exam: Present: alert, oriented X3, CN II-XII intact Psychiatric exam: Present: normal affect, normal mood Skin exam: Present: warm, dry, intact, normal color. Absent: rash Course Vital Signs 01/23/24 01/23/24 01/23/24 01:09 01:10 01:50 Temperature 97.8 F Pulse Rate 143 H 80 Pulse Rate [ 142 H Crisis Counselor ] Respiratory 18 18 Rate Blood Pressure 110/84 132/74 O2 Sat by Pulse 98 94 L Oximetry 01/23/24 01/23/24 01/23/24 02:30 03:24 03:27 Temperature Pulse Rate 76 76 73 Pulse Rate [ Crisis Counselor ] Respiratory 18 18 Rate Blood Pressure 119/67 118/70 O2 Sat by Pulse 94 L 94 L Oximetry 01/23/24 03:38 Temperature Pulse Rate 75 Pulse Rate [ Crisis Counselor ] Respiratory Rate Blood Pressure O2 Sat by Pulse Oximetry - Reevaluation(s) Reevaluation #1: 01/23/24 01:56 Medical records reviewed Reevaluation #2: 01/23/24 01:56 Patient symptoms are improved and heart rate is now sinus rhythm Reevaluation #3: Patient informed of results and questions answered all symptoms are resolved Studies Chest x-ray is negative for acute disease Reevaluation #4: Was pt. sent in by a medical professional or institution (, PA, EVENT REPRESENTATIVE, urgent care, hospital, or long term...) When possible be specific @ -no Did you speak to anyone other than the patient for history (EMS, parent, family, police, friend...)? What history was obtained from this source @ -no Did you review nursing and triage notes (agree or disagree)? Why? @ -agree Are old charts reviewed (outside hosp., previous admission, EMS record, old EKG, old radiological studies, urgent care reports/EKG's, long term records)? Report findings @ -yes Differential Diagnosis (chest pain, altered mental status, abdominal pain women, abdominal pain men, vaginal bleeding, weakness, fever, dyspnea, syncope, headache, dizziness, GI bleed, back pain, seizure, CVA, palpatations, mental health, musculoskeletal)? @ -prior EKG interpreted by me (3pts min.). @ -yes X-rays interpreted by me (1pt min.). @ -yes negative for acute disease CT interpreted by me (1pt min.). @ -no U/S interpreted by me (1pt. min.). @ -no What testing was considered but not performed or refused? (CT, X-rays, U/S, labs)? Why? @ -none What meds were considered but not given or refused? Why? @ -none Did you discuss the management of the patient with other professionals (professionals i.e. , PA, EVENT REPRESENTATIVE, lab, RT, psych nurse, social insurance analyst, fire dispatcher, teacher, adult parole officer, case management rn)? Give summary @ -no Was smoking cessation discussed for >3mins.? @ -no Was critical care preformed (if so, how long)? @ -no Were there social determinants of health that impacted care today? How? (Homelessness, low income, unemployed, alcoholism, drug addiction, transportation, low edu. Level, literacy, decrease access to med. care, [facility], rehab)? @ -none Was there de-escalation of care discussed even if they declined (Discuss DNR or withdrawal of care, Hospice)? DNR status @ -no What co-morbidities impacted this encounter? (DM, HTN, Smoking, COPD, CAD, Cancer, CVA, ARF, Chemo, Hep., AIDS, mental health diagnosis, sleep apnea, morbid obesity)? @ -none Was patient admitted / discharged? Hospital course, mention meds given and route, prescriptions, significant lab abnormalities, [facility] @ - 73-year-old ER for evaluation atrial fibrillation with RVR. Patient will be admitted for palpitations worsening symptoms compounded by COPD Discharge Undiagnosed new problem with uncertain prognosis? @ -no Drug Therapy requiring intensive monitoring for toxicity (Heparin, Nitro, Insulin, Cardizem)? @ -no Were any procedures done? @ -no Diagnosis/symptom? @ -Atrial fibrillation with RVR Acute, or Chronic, or Acute on Chronic? @ -Acute Uncomplicated (without systemic symptoms) or Complicated (systemic symptoms)? @ -Complicated Side effects of treatment? @ -no Exacerbation, Progression, or Severe Exacerbation? @ -exacerbation Poses a threat to life or bodily function? How? (Chest pain, USA, SC, pneumonia, PE, COPD, DKA, ARF, appy, cholecystitis, CVA, Diverticulitis, Homicidal, Suicidal, threat to staff... and all critical care pts) @ -yes significant cardiac arrhythmia Reevaluation #5: Differential Dyspnea: Coronary syndrome, arrhythmia, tamponade, asthma, COPD, pulmonary embolism, pneumonia, pneumothorax, pulmonary effusion, anaphylaxis, diabetic ketoacidosis, flailed chest, pulmonary contusion, diaphragmatic rupture, anemia, neuro muscular, this is not meant to be an all-inclusive list. Differential Palpitations Ventricular arrhythmias, atrial arrhythmias, myocardial infarction, anemia, thyrotoxicosis, electrolyte imbalance, hypokalemia, pulmonary embolism, pulmonary disease, drugs, alcohol, anxiety, stress.... This is not meant to be an all-inclusive list. Chest Pain MDM - MDM 73-year-old ER for evaluation atrial fibrillation with RVR. Patient will be admitted for palpitations worsening symptoms compounded by COPD Critical Care Time Critical Care Time: Yes Total Critical Care Time: 31 Disposition Clinical Impression: A-fib, Tachycardia, Palpitations, Atrial fibrillation with rapid ventricular response, Acute bronchitis with COPD, Chest pain Disposition: HOME SELF-CARE Condition: Good Instructions (If sedation given, give patient instructions): A-fib (Atrial Fibrillation) (ED), Chest Pain (ED) Is patient prescribed a controlled substance at d/c from ED?: No Referrals: Mary Stout DO [Primary Care Provider] - 1-2 days Time of Disposition: 04:00
[2024-01-23 01:32] LABS: Basophils % (A) 1 %; Eosinophils # (A) 0.1 k/uL (0-0.7); Eosinophils % (A) 2 %; HCT 41.5 % (34.0-46.0); HGB 13.6 gm/dL (11.4-16.0); Lymphocytes # (A) 1.8 k/uL (1.0-4.8); Lymphocytes % (A) 34 %; MCHC 32.7 g/dL (31.0-37.0); MCV 100.8 fL (80.0-100.0); Mean Platelet Volume 8.2; Monocytes # (A) 0.4 k/uL (0-1.0); Monocytes % (A) 7 %; Neutrophils # (A) 2.8 k/uL (1.3-7.7); Neutrophils % (A) 54 %; Platelet Count 218 k/uL (150-450); RBC 4.12 m/uL (3.80-5.40); WBC 5.2 k/uL (3.8-10.6)
[2024-01-23] MEDS: SODIUM CHLORIDE 0.9% 500 ML 500 ML IV STA (01:34)
[2024-01-23 01:46] LABS: INR 1.2 (<1.2); Partial Thromboplastin Time 27.6 sec (22.0-30.0); Prothrombin Time 12.4 sec (10.0-12.5)
[2024-01-23 01:56] VITALS: RESP 18; TEMP 97.8
--- NOTE | 2024-01-23 02:02 | XR ---
EXAM: XR Chest, 1 View CLINICAL HISTORY: ITS.REASON XR Reason: chest pain TECHNIQUE: Frontal view of the chest. COMPARISON: No relevant prior studies available. FINDINGS: Lungs: No consolidation or mass. Pleural space: No acute findings Heart: No cardiomegaly. Bones/joints: No acute findings. IMPRESSION: No acute cardiopulmonary process.
[2024-01-23] MEDS: DILTIAZEM DRIP BOLUS FROM BAG 1 MG SOLN IV ONE (03:24)
[2024-01-23] MEDS: DILTIAZEM 125 MG in SODIUM CHLORIDE 0.9% 100 ML IV SCH (03:25)
[2024-01-23] MEDS: DEXAMETHASONE SOD PHOSPHATE 10 MG/ML 1 ML VIAL IVP STA (03:27)
[2024-01-23] MEDS: KETOROLAC 15 MG/ML 1 ML VIAL IVP STA (03:27)
[2024-01-23] MEDS: IPRATROPIUM-ALBUTEROL 3 ML NEB INHALATION STA (03:27)
[2024-01-23 03:33] LABS: ALT 20 U/L (4-34); AST 29 U/L (14-36); African American GFR (CKD) >90 (>60 ml/min/1.73 sqM); Albumin 3.1 g/dL (3.5-5.0); Alkaline Phosphatase 84 U/L (38-126); Anion Gap 7 mmol/L; Blood Urea Nitrogen 16 mg/dL (7-17); Calcium 8.9 mg/dL (8.4-10.2); Carbon Dioxide 25 mmol/L (22-30); Chloride 108 mmol/L (98-107); Glucose 94 mg/dL (74-99); Lipase 50 U/L (23-300); Magnesium 1.6 mg/dL (1.6-2.3); Non-African American GFR(CKD) 86 (>60 ml/min/1.73 sqM); Potassium 3.8 mmol/L (3.5-5.1); Sodium 140 mmol/L (137-145); Total Bilirubin 0.4 mg/dL (0.2-1.3); Total Protein 5.7 g/dL (6.3-8.2)
[2024-01-23 03:40] LABS: NT-Pro-B-Type Natriuretic Pept 316 pg/mL
[2024-01-23 04:01] VITALS: BP 118/70; PULSE 75
== END 2024-01-23 03:45 | disposition home or self-care (01) ==
LOC: EC 00:56
DX: R00.2 Palpitations (principal); R00.0 Tachycardia, unspecified; R07.89 Other chest pain; J44.9 Chronic obstructive pulmonary disease, unspecified; I48.91 Unspecified atrial fibrillation; F17.200 Nicotine dependence, unspecified, uncomplicated; Z88.0 Allergy status to penicillin; Z88.5 Allergy status to narcotic agent; Z88.8 Allergy status to other drugs, medicaments and biological substances
CPT/HCPCS: 36415; 94640; 93005; 83880; 80053; 83690; 83735; 84484; 85025; 85610; 85730; 71045; 99291; 96374; 96375; 96361; J1100; J1885

== ENCOUNTER → 2025-01-08 | Outpatient (CLI) | payer MEDICARE, BC ==
[2025-01-08 15:06] LABS: ALT 18 U/L (8-44); AST 29 U/L (13-35); Albumin 3.9 g/dL (3.8-4.9); Albumin/Globulin Ratio 1.86 Ratio (1.60-3.17); Alkaline Phosphatase 65 U/L (41-126); BUN/Creat Ratio 20.89 Ratio (12.00-20.00); Blood Urea Nitrogen 18.8 mg/dL (9.0-27.0); Calcium 9.3 mg/dL (8.7-10.3); Carbon Dioxide 28.6 mmol/L (21.6-31.8); Chloride 105 mmol/L (96-109); Chol/HDL Ratio 2.42 Ratio; Globulin 2.1 g/dL (1.6-3.3); Glucose 100 mg/dL (70-110); LDL Cholesterol,Calculated 73.8 mg/dL (0.0-131.0); Potassium 4.2 mmol/L (3.5-5.5); Sodium 143 mmol/L (135-145); Total Bilirubin 0.4 mg/dL (0.3-1.2)
== END | disposition home or self-care (01) ==
LOC: LABWHC1 09:50
PROVIDERS: ATTEND Internal Medicine Clinical Cardiac Electrophysiology
DX: I10 Essential (primary) hypertension (principal); I25.10 Atherosclerotic heart disease of native coronary artery without angina pectoris
CPT/HCPCS: 36415; 80053; 80061; 84443